=== PATIENT | male | born 1965 | race Two or more races ===

== ENCOUNTER → 2025-02-08 | Outpatient (CLI) | payer MEDICAID, SELFPAY ==
--- NOTE | 2025-02-08 09:30 | XR_ITS ---
EXAMINATION: Esophagram standard 31 spot films of the esophagus Upright PA chest single view Soft tissue lateral neck single view Fluoroscopy February 08, 2025, 0928 hours INDICATIONS: Food stuck in the throat 2 years heartburn TECHNIQUE AND FINDINGS: Upright PA chest demonstrates normal heart size clear lungs Soft tissue lateral neck demonstrates satisfactory alignment cervical vertebral bodies Patient swallowed thin barium with 31 spot films of the esophagus obtained Isolated primary peristaltic waves Numerous secondary and tertiary esophageal waves and esophageal spasm Moderate intermittent gastroesophageal reflux Small sliding esophageal hernia Stricture at the gastroesophageal junction, 70% IMPRESSION: Severe esophageal dysmotility Moderate intermittent gastroesophageal reflux Stricture at the gastroesophageal junction, 70%, consider reflux esophagitis, clinical correlation advised Fluoroscopy 0.1-minute radiation dose 44.45 mGy
== END | disposition home or self-care (01) ==
LOC: SDIM 09:03
PROVIDERS: PCP Physician Assistant; Referring Provider Physician Assistant; Visit Provider Physician Assistant
DX: K21.9 Gastro-esophageal reflux disease without esophagitis (principal); K22.2 Esophageal obstruction
CPT/HCPCS: 74220; A4649